=== PATIENT | male | born 1945 | race Caucasian/White ===

== ENCOUNTER → 2017-10-21 12:16 | Outpatient (CLI) | payer MEDICARE, SELFPAY ==
[2017-10-21 12:43] VITALS: PULSE 59; PULSE 67; PULSE 78; PULSE 86; PULSE 87; PULSE 90; PULSE 93; O2SAT 94; O2SAT 96
--- NOTE | 2017-10-22 08:46 | WT_ITS ---
PSN 6 Minute Walk Test - 6 Minute Walk Test 6 Minute Walk Test: 6 Minute Walk Test PSN:6-Minute Walk Test Start: 10/21/17 12: 42 Freq: Status: Active Protocol: RESP.6MINW Document 10/21/17 12:43 JLA (Rec: 10/21/17 12:47 JLA [id number]) 6 Minute Walk Test Date Performed 10/21/17 Time Performed 12:30 Height 5 ft 10 in Weight: 258 lb 12.682 oz Weight in Pounds 258.[address]: Yoshi Fuentes Assistive device used: None Pre-test Oxygen Delivery Method Room Air Pulse Ox (%) 94 Pulse Rate (60-100 beats/min) 59 L Dyspnea Evin Scale (0-10) 1 Exertion Evin Scale (6-20) 6 1st minute Oxygen Delivery Method Room Air Pulse Ox (%) 96 Pulse Rate (60-100 beats/min) 86 2nd minute Oxygen Delivery Method Room Air Pulse Ox (%) 94 Pulse Rate (60-100 beats/min) 78 3rd minute Oxygen Delivery Method Room Air Pulse Ox (%) 94 Pulse Rate (60-100 beats/min) 87 4th minute Oxygen Delivery Method Room Air Pulse Ox (%) 94 Pulse Rate (60-100 beats/min) 78 5th minute Oxygen Delivery Method Room Air Pulse Ox (%) 94 Pulse Rate (60-100 beats/min) 90 6th minute Oxygen Delivery Method Room Air Pulse Ox (%) 94 Pulse Rate (60-100 beats/min) 93 Dyspnea Evin Scale (0-10) 2 Exertion Evin Scale (6-20) 13 Post-test Oxygen Delivery Method Room Air Pulse Ox (%) 96 Pulse Rate (60-100 beats/min) 67 Full Laps Walked 19 Partial Lap, Number of Tiles Walked 17 Total Distance Walked (ft) 1138 - Interpretation Interpretation: The patient ambulated 1138 feet over the course of 6 minutes beginning on room air without assistive devices or breaks. Pretesting oxygen saturation was noted to be 94% on room air. With ambulation, the ritu oxygen saturation was 94%. There was no significant exertional oxygen desaturation. - Recommendations Recommendations: There is no indication for the use of supplemental oxygen at this time.
== END ==
PROVIDERS: Family Provider Family Medicine; PCP Family Medicine; Visit Provider Internal Medicine Critical Care Medicine
DX: J44.9 Chronic obstructive pulmonary disease, unspecified (principal); I27.20 Pulmonary hypertension, unspecified
CPT/HCPCS: 94618

== ENCOUNTER → 2017-10-24 13:20 | Outpatient (CLI) | payer MEDICARE, SELFPAY ==
--- NOTE | 2017-10-25 10:52 | PFT ---
INTRODUCTION: The patient is a 72-year-old male currently under the care of Dr. Fuentes that presents for pulmonary function testing secondary to a diagnosis of COPD. Respiratory therapy reports good patient effort and reports no other concerns. Bronchodilators were used during testing. INTERPRETATION: Forced expiration spirometry demonstrates the presence of a moderately severe large airways obstructive ventilatory defect. There was a significant response to aerosolized bronchodilators noted in both FEV1 and FVC. Spirograms are of good quality and do not plateau indicating slow emptying of the lungs. The respiratory flow volume loop reveals decreased expiratory flow rates at all lung volumes consistent with airways obstruction. Body plethysmography was performed and reveals an elevated RV to 120% of predicted, indicative of a mild degree of air trapping. Diffusing capacity by single breath CO is mildly reduced at 64% of predicted. IMPRESSION: These pulmonary function studies demonstrate the presence of a moderately severe large airways obstructive ventilatory impairment. There was a significant bronchodilator response noted along with a mild degree of air trapping and reduction in diffusing capacity.
== END ==
PROVIDERS: Family Provider Family Medicine; PCP Family Medicine; Visit Provider Internal Medicine Critical Care Medicine
DX: J44.9 Chronic obstructive pulmonary disease, unspecified (principal)
CPT/HCPCS: 94060; 94726; 94729

== ENCOUNTER → 2017-10-25 13:53 | Outpatient (CLI) | payer MEDICARE, SELFPAY ==
--- NOTE | 2017-10-25 13:54 | ECHOCS_ITS ---
Reason For Study: PULMONARY HTN Procedure This was a 2D Doppler, Color Flow transthoracic echocardiogram. Exam performed in department. Left Ventricle Normal LV size. Left ventricular systolic function is normal. The estimated ejection fraction is 55 %. No evidence for diastolic dysfunction. No regional wall motion abnormalities noted. Right Ventricle Normal RV size. Normal systolic function. Atria Normal left atrium. Normal right atrium. Mitral Valve Normal mitral valve. Mild (1+) eccentric mitral valve insufficiency. Tricuspid Valve Normal tricuspid valve. Aortic Valve Trisinus/trileaflet aortic valve. Moderate focal aortic valve calcification. Peak aortic valve gradient 27 mmHg. Mean aortic valve gradient 15 mmHg. Mild aortic stenosis. Calculated aortic valve area (continuity equation) is 1.6 cm2. Mild (1+) eccentric aortic valve insufficiency. Pulmonic Valve Normal pulmonic valve. Great Vessels Normal aortic root. The pulmonary artery is normal size. Normal inferior vena cava. Pericardium/Pleural No pericardial effusion. MMode/2D Measurements & Calculations LVIDd: 4.9 cm IVSd: 1.1 cm LVOT diam: 2.4 cm LVIDs: 3.5 cm LVPWd: 1.1 cm LVOT area: 4.5 cm2 RVDd: 3.9 cm FS: 29.1 % Ao root diam: 3.8 cm LAV(MOD-bp): 57.2 ml EDV(MOD-sp4): 110.6 ml LAV(MOD-bp) Indexed: 24.7 ml/m2 ESV(MOD-sp4): 50.6 ml LAV(MOD-sp2): 64.6 ml EF(MOD-sp4): 54.3 % LAV(MOD-sp4): 44.7 ml SV(MOD-sp4): 60.1 ml LA A4 area: 18.5 cm2 RA A4 area: 15.2 cm2 Time Measurements MV dec time: 0.21 sec Doppler Measurements & Calculations MV E max gibran: 107.1 cm/sec Lat Peak E' Gibran: 13.0 cm/sec Med Peak E' Gibran: 7.6 cm/sec MV A max gibran: 64.5 cm/sec E/E' lat: 8.2 E/E' med: 14.1 MV E/A: 1.7 Ao V2 max: 259.7 cm/sec AI max gibran: 327.3 cm/sec LV V1 max: 91.0 cm/sec Ao max P.1 mmHg AI max P.9 mmHg LV V1 max P.3 mmHg Ao V2 mean: 182.5 cm/sec AI dec slope: 119.3 cm/sec2 LV V1 mean P.8 mmHg Ao mean P.2 mmHg AI P1/2t: 803.4 msec LV V1 mean: 63.6 cm/sec Ao V2 VTI: 61.8 cm LV V1 VTI: 23.5 cm ISAC(I,D): 1.7 cm2 ISAC(V,D): 1.6 cm2 SV(LVOT): 106.4 ml PA V2 max: 85.8 cm/sec TR max gibran: 196.2 cm/sec TR max P.4 mmHg Interpretation Summary Normal LV size. Left ventricular systolic function is normal. The estimated ejection fraction is 55 %. No evidence for diastolic dysfunction. Mild aortic stenosis. Calculated aortic valve area (continuity equation) is 1.6 cm2. Ordering Physician: Yoshi Fuentes Referring Physician: MICHELL KENT Performed By: Latoya Fuller RDCS
== END ==
PROVIDERS: Family Provider Family Medicine; PCP Family Medicine; Visit Provider Internal Medicine Critical Care Medicine
DX: Z98.890 Other specified postprocedural states (principal); G47.33 Obstructive sleep apnea (adult) (pediatric); Z87.19 Personal history of other diseases of the digestive system
CPT/HCPCS: 93306; C8929

== ENCOUNTER → 2018-01-01 13:18 | Outpatient (CLI) | payer MEDICARE, SELFPAY ==
--- NOTE | 2018-01-01 13:21 | VDLE_ITS ---
Reason For Study: LEG PAIN RIGHT LEFT GSV is normal. CFV is compressible, spontaneous, phasic, CFV is compressible, spontaneous, phasic, competent, and demonstrates normal competent and demonstrates normal augmentation. augmentation. FV is compressible, spontaneous, phasic, competent and demonstrates normal augmentation. POP V is compressible, spontaneous, phasic, competent and demonstrates normal augmentation. T/P Trunk is compressible. PTV is compressible. RT PerV is compressible. Procedure Exam performed in department. A preliminary report was called and/or faxed to Dr. Parnell. Interpretation Summary Deep veins of the right lower extremity are patent and compressible segmentally. There is no evidence of right lower extremity deep vein thrombosis. Valvular competence appears intact within the proximal deep venous system on the right . The right greater saphenous vein appears patent and compressible segmentally. Ordering Physician: Orlando Parnell Referring Physician: Orlando Parnell Performed By: Olinda Bello RVT
== END ==
PROVIDERS: Family Provider Family Medicine; PCP Family Medicine; Visit Provider Family Medicine
DX: M79.661 Pain in right lower leg (principal)
CPT/HCPCS: 93971

== ENCOUNTER → 2018-07-14 08:17 | Outpatient (CLI) | payer MEDICARE, SELFPAY ==
[2018-07-14 10:27] LABS: Absolute Lymphocyte Count 1.67 X10^3/ul (0.83-4.51); Basophil# 0.05 X10^3/uL; Basophil% 0.7 % (0-1); Eosinophil# 0.35 X10^3/uL; Eosinophils% 5.2 % (0-5); Hematocrit 41.1 % (40-54); Hemoglobin 13.4 g/dl (13.0-16.5); Lymphocyte # 1.67 X10^3/ul (4.0); Lymphocyte % 24.6 % (19-41); Mean Corp Hgb Conc 32.6 g/gl (32-36); Mean Corpuscular Hgb 30.5 pg (27.0-32.0); Mean Corpuscular Volume 93.6 fL (80-94); Monocyte# 0.64 X10^3/uL; Monocyte% 9.4 % (0-10); Neutrophil # 4.04 X10^3/uL (2.7-7.7); Neutrophil % 59.7 % (47-70); Platelet Count 184 K/mm3 (150-450); RBC Distribution Width CV 13.6 % (11.6-14.6); RBC Distribution Width SD 46.7 fl (35.1-43.9); Red Blood Count 4.39 M/mm3 (4.6-6.2); White Blood Count 6.8 K/mm3 (4.4-11.0)
[2018-07-14 10:30] LABS: POSITIVE COUNT NO; POSITIVE DIFFERENTIAL NO; POSITIVE MORPHOLOGY NO
[2018-07-14 10:35] LABS: International Normalized Ratio 1.7; Prothrombin Time (Protime)PT. 19.9 SECONDS (11.7-14.9)
[2018-07-14 10:44] LABS: Anion Gap 9 (5-15); BUN 22 mg/dL (7-18); BUN/Creat Ratio 20.4 RATIO (10-20); Calcium,Total 8.7 mg/dL (8.5-10.1); Chloride 106 mmol/L (98-107); Creatinine, Serum 1.08 mg/dL (0.70-1.30); EST Glomerular Filtration Rate 72 mL/min (>60); Est Glom Filt Rate - Afr Amer 87 mL/min (>60); Glucose 100 mg/dL (74-106); Potassium 4.2 mmol/L (3.5-5.1); Sodium Level 142 mmol/L (136-145)
== END ==
PROVIDERS: Family Provider Family Medicine; PCP Family Medicine; Visit Provider Family Medicine
DX: M79.89 Other specified soft tissue disorders (principal)
CPT/HCPCS: 36415; 80048; 85025; 85610

== ENCOUNTER → 2018-07-23 08:49 | Outpatient (CLI) | payer MEDICARE, SELFPAY ==
[2018-07-17 12:50] VITALS: BMI 38.7
[2018-07-23 09:26] VITALS: PULSE 60; PULSE 67; PULSE 76; PULSE 89; PULSE 90; PULSE 91; PULSE 92; O2SAT 95; O2SAT 96; O2SAT 97
--- NOTE | 2018-07-23 15:26 | PCM.PSN.6M ---
PSN 6 Minute Walk Test - 6 Minute Walk Test 6 Minute Walk Test: 6 Minute Walk Test PSN:6-Minute Walk Test Start: 07/23/18 09:26 Freq: Status: Active Protocol: RESP.6MINW Document 07/23/18 09:26 LEOPOLDO (Rec: 07/23/18 09:36 LEOPOLDO [id number]) 6 Minute Walk Test Date Performed 07/23/18 Time Performed 09:00 Height 5 ft 10 in Weight: 118.841 kg Weight in Pounds 262.[address]: Yoshi Fuentes Assistive device used: None Pre-test Oxygen Delivery Method Room Air Pulse Ox (%) 97 Pulse Rate (60-100 beats/min) 67 Dyspnea Evin Scale (0-10) 0 Exertion Evin Scale (6-20) 6 1st minute Oxygen Delivery Method Room Air Pulse Ox (%) 96 Pulse Rate (60-100 beats/min) 76 2nd minute Oxygen Delivery Method Room Air Pulse Ox (%) 95 Pulse Rate (60-100 beats/min) 90 3rd minute Oxygen Delivery Method Room Air Pulse Ox (%) 95 Pulse Rate (60-100 beats/min) 91 4th minute Oxygen Delivery Method Room Air Pulse Ox (%) 95 Pulse Rate (60-100 beats/min) 92 5th minute Oxygen Delivery Method Room Air Pulse Ox (%) 96 Pulse Rate (60-100 beats/min) 91 6th minute Oxygen Delivery Method Room Air Pulse Ox (%) 96 Pulse Rate (60-100 beats/min) 89 Dyspnea Evin Scale (0-10) 2 Exertion Evin Scale (6-20) 12 Post-test Oxygen Delivery Method Room Air Pulse Ox (%) 97 Pulse Rate (60-100 beats/min) 60 Full Laps Walked 16 Partial Lap, Number of Tiles Walked 94 Total Distance Walked (ft) 1038 - Interpretation Interpretation: The patient was able to ambulate 1038 feet over the course of 6 minutes on room air with no assistive devices or breaks. The patient did not experience any significant desaturation or tachycardia during testing. These findings are consistent with deconditioning. - Recommendations Recommendations: No supplemental oxygen is indicated at this time.
== END ==
PROVIDERS: Family Provider Family Medicine; PCP Family Medicine; Referring Provider Internal Medicine Critical Care Medicine; Visit Provider Internal Medicine Critical Care Medicine
DX: I27.20 Pulmonary hypertension, unspecified (principal); G47.33 Obstructive sleep apnea (adult) (pediatric); J45.40 Moderate persistent asthma, uncomplicated
CPT/HCPCS: 94618

== ENCOUNTER → 2018-10-08 07:49 | Outpatient (CLI) | payer MEDICARE, SELFPAY ==
[2018-07-17 12:50] VITALS: BMI 38.7
--- NOTE | 2018-10-08 12:48 | PFT ---
INTRODUCTION: The patient is a 73-year-old male that presents for pulmonary function studies secondary to a diagnosis of COPD. Respiratory therapy reports good patient effort. Bronchodilators were used during testing. INTERPRETATION: Forced expiration spirometry demonstrates the presence of a very severe large airways obstructive ventilatory defect. There was a significant response to aerosolized bronchodilators noted. Spirograms are of good quality and do not plateau indicating slow emptying of the lungs. Body plethysmography was performed and reveals an elevated RV to 178% of predicted, indicative of underlying air trapping. Diffusing capacity by single breath CO is mildly reduced at 69% of predicted. When compared to previous pulmonary function studies dated October 2017, there has been a 42% reduction in FEV1. IMPRESSION: Partially reversible very severe large airways obstructive ventilatory defect with associated air trapping and mild reduction in diffusing capacity. There has been significant worsening in the patient's pulmonary function study since they were last completed in 2017, as noted above.
== END ==
PROVIDERS: Family Provider Family Medicine; PCP Family Medicine; Referring Provider Internal Medicine Critical Care Medicine; Visit Provider Internal Medicine Critical Care Medicine
DX: J45.40 Moderate persistent asthma, uncomplicated (principal)
CPT/HCPCS: 94060; 94726; 94729

== ENCOUNTER → 2018-11-21 12:37 | Outpatient (CLI) | payer MEDICARE, SELFPAY ==
[2018-10-23 10:22] VITALS: BMI 38.2
[2018-11-21 13:44] LABS: Absolute Lymphocyte Count 1.32 X10^3/ul (0.83-4.51); Absolute Neutrophil Count 4.3 X10^3/uL (2.0-7.7); Basophil# 0.05 X10^3/uL; Basophil% 0.7 % (0-1); Eosinophil# 0.43 X10^3/uL; Eosinophils% 6.3 % (0-5); Hematocrit 41.7 % (40-54); Lymphocyte # 1.32 X10^3/ul (4.0); Lymphocyte % 19.5 % (19-41); Mean Corp Hgb Conc 33.6 g/gl (32-36); Mean Corpuscular Hgb 30.9 pg (27.0-32.0); Mean Corpuscular Volume 92.1 fL (80-94); Mean Platelet Vol. 10.2 fl (6.2-12.0); Monocyte# 0.64 X10^3/uL; Monocyte% 9.4 % (0-10); Neutrophil # 4.31 X10^3/uL (2.7-7.7); Neutrophil % 63.7 % (47-70); Platelet Count 201 K/mm3 (150-450); RBC Distribution Width CV 13.6 % (11.6-14.6); RBC Distribution Width SD 45.2 fl (35.1-43.9); Red Blood Count 4.53 M/mm3 (4.6-6.2); White Blood Count 6.8 K/mm3 (4.4-11.0)
[2018-11-21 13:54] LABS: POSITIVE COUNT NO; POSITIVE DIFFERENTIAL NO; POSITIVE MORPHOLOGY NO
[2018-12-02 03:06] LABS: Alternaria alternata <0.10 kU/L (Class 0); Aspirgillus flavus Negative (Neg:<1:1); Aspirgillus fumigatus Negative (Neg:<1:1); Aspirgillus niger Negative (Neg:<1:1); Bermuda Grass <0.10 kU/L (Class 0); Bluegrass, Kentucky <0.10 kU/L (Class 0); Cat Hair/Dander, Standard <0.10 kU/L (Class 0); D farinae Mite <0.10 kU/L (Class 0); D pteronyssinus <0.10 kU/L (Class 0); Dog Epithelia <0.10 kU/L (Class 0); Elm, American White <0.10 kU/L (Class 0); Oak, White <0.10 kU/L (Class 0); Plantain, English <0.10 kU/L (Class 0); Ragweed, Short/Common <0.10 kU/L (Class 0)
[2018-12-02 16:41] LABS: Immunoglobulin E 85 IU/mL (6-495); Mouse Urine <0.10 kU/L (Class 0)
== END ==
PROVIDERS: Family Provider Family Medicine; PCP Family Medicine; Referring Provider Nurse Practitioner Acute Care; Visit Provider Nurse Practitioner Acute Care
DX: J45.40 Moderate persistent asthma, uncomplicated (principal)
CPT/HCPCS: 36415; 82785; 85025; 86003; 86606

== ENCOUNTER → 2018-12-30 16:46 | Outpatient (CLI) | payer MEDICARE, SELFPAY ==
[2018-12-30 16:02] VITALS: BMI 37.7
[2018-12-30 17:29] LABS: International Normalized Ratio 2.4; Prothrombin Time (Protime)PT. 25.8 SECONDS (11.7-14.9)
[2018-12-30 17:49] LABS: Anion Gap 9 (5-15); BUN 22 mg/dL (7-18); BUN/Creat Ratio 15.3 RATIO (10-20); Calcium,Total 9.1 mg/dL (8.5-10.1); Chloride 106 mmol/L (98-107); Creatinine, Serum 1.44 mg/dL (0.70-1.30); EST Glomerular Filtration Rate 51 mL/min (>60); Est Glom Filt Rate - Afr Amer 62 mL/min (>60); Glucose 100 mg/dL (74-106); Potassium 4.7 mmol/L (3.5-5.1); Sodium Level 143 mmol/L (136-145)
== END ==
PROVIDERS: Family Provider Family Medicine; PCP Family Medicine; Referring Provider Internal Medicine Cardiovascular Disease; Visit Provider Internal Medicine Cardiovascular Disease
DX: I48.0 Paroxysmal atrial fibrillation (principal)
CPT/HCPCS: 36415; 80048; 85610

== ENCOUNTER 2019-01-07 12:30 | Outpatient (RCR) | payer MEDICARE, SELFPAY ==
[2018-12-30 16:02] VITALS: BMI 37.7
[2019-01-07 13:46] LABS: International Normalized Ratio 2.9; Prothrombin Time (Protime)PT. 30.1 SECONDS (11.7-14.9)
== END 2019-01-11 12:00 | disposition home or self-care (01) ==
LOC: LAB 12:30
PROVIDERS: Family Provider Family Medicine; PCP Family Medicine; Referring Provider Internal Medicine Cardiovascular Disease; Visit Provider Internal Medicine Cardiovascular Disease
DX: I48.0 Paroxysmal atrial fibrillation (principal); Z79.01 Long term (current) use of anticoagulants
CPT/HCPCS: 36415; 85610

== ENCOUNTER 2019-01-14 13:00 | Outpatient (RCR) | payer MEDICARE, SELFPAY ==
[2018-12-30 16:02] VITALS: BMI 37.7
[2019-01-14 14:55] LABS: Prothrombin Time (Protime)PT. 35.5 SECONDS (11.7-14.9)
[2019-01-14 15:28] LABS: International Normalized Ratio 3.5
== END 2019-02-11 16:00 | disposition home or self-care (01) ==
LOC: LAB 13:00
PROVIDERS: Family Provider Family Medicine; PCP Family Medicine; Referring Provider Internal Medicine Cardiovascular Disease; Visit Provider Internal Medicine Cardiovascular Disease
DX: I48.0 Paroxysmal atrial fibrillation (principal); Z79.01 Long term (current) use of anticoagulants
CPT/HCPCS: 36415; 85610

== ENCOUNTER → 2019-01-19 06:12 | Outpatient (CLI) | payer MEDICARE, SELFPAY ==
[2018-12-30 16:02] VITALS: BMI 37.7
--- NOTE | 2019-01-19 06:35 | RAD_ITS ---
STUDY: X-RAY CHEST REASON FOR EXAM: Male, 73 years old. Shortness of breath/dyspnea. TECHNIQUE: PA and lateral views of the chest. COMPARISON: Comparison is made with prior study dated March 03, 2016. FINDINGS: There is hyperinflation of the lungs consistent with chronic obstructive lung disease (COPD). There is no demonstrated pleural abnormality. Normal size heart. Calcified bilateral hilar lymph nodes. Normal visualized pulmonary arteries. There is atherosclerotic calcification of the aortic arch with tortuosity. Normal visualized thoracic spine. Normal visualized ribs, clavicles, and shoulders. There is no demonstrated abnormality of the visualized soft tissue structures of the upper abdomen. RAD/Chest PA and Lateral IMPRESSION: Hyperinflation. No acute abnormality is seen. Electronically Signed: Vicente Madsen, at 9:32 EDT , Service support ,
--- NOTE | 2019-01-19 09:12 | STRESSREP ---
Stress Test Report Pharmacologic myocardial perfusion stress test. 73-year-old man with a history of chest pain. Medications: Flecainide, metoprolol, warfarin, Lipitor, Symbicort. 0.4 mg of regadenoson was infused per usual protocol followed by rapid intravenous infection injection continuous EKG monitoring was performed. The maximum heart rate was 97 bpm which was 65% of maximum predicted heart rate and maximum workload was 1 metabolic equivalent. At rest there were no ST or T wave changes noted suggest abnormal flow reserve. The patient maintained atrial fibrillation throughout the recording.Resting EKG demonstrates atrial fibrillation with a rate of 75 bpm normal intervals are noted resting blood pressure is 118/78 mmHg. The resting blood pressures 118/78 with a final blood pressure 120/78. No clinical angina was noted. Myocardial perfusion protocol. 14.5 mCi of technetium 99m sestamibi was injected at rest. 0.4 mg of regadenoson was infused per usual protocol peak infusion 44.2 mCi of technetium 99m sestamibi was injected stress images were obtained stress and rest images are reconstructed in comparing the short axis vertical and horizontal long axis. Gated images were also obtained Perfusion SPECT analysis: Review of the stress images demonstrate normal uptake of tracer noted in all areas of the myocardium. The resting images demonstrate normal uptake of tracer noted in all areas of the myocardium. No areas of reversibility are noted suggest ischemia no previous infarct is noted. Gated SPECT analysis: The gated ejection fraction is noted to be 61%. Conclusion: Normal pharmacologic myocardial perfusion stress test. Atrial fibrillation noted. Preserved ejection fraction.
== END ==
PROVIDERS: Family Provider Family Medicine; PCP Family Medicine; Referring Provider Internal Medicine Cardiovascular Disease; Visit Provider Internal Medicine Cardiovascular Disease
DX: R07.9 Chest pain, unspecified (principal); I27.21 Secondary pulmonary arterial hypertension; I10 Essential (primary) hypertension; J44.9 Chronic obstructive pulmonary disease, unspecified; I48.0 Paroxysmal atrial fibrillation; I35.2 Nonrheumatic aortic (valve) stenosis with insufficiency; G47.33 Obstructive sleep apnea (adult) (pediatric); E78.5 Hyperlipidemia, unspecified; Z79.01 Long term (current) use of anticoagulants
CPT/HCPCS: 71046; 78452; 93017; A9500; A4216; J2785

== ENCOUNTER 2019-01-23 10:57 | Day surgery (SDC) | payer MEDICARE, SELFPAY ==
[2018-12-30 16:02] VITALS: BMI 37.7
[2019-01-21 18:42] LABS: Hemoglobin 13.8 g/dl (13.0-16.5); Mean Corp Hgb Conc 32.9 g/gl (32-36); Mean Corpuscular Hgb 30.5 pg (27.0-32.0); Mean Corpuscular Volume 92.9 fL (80-94); Mean Platelet Vol. 9.9 fl (6.2-12.0); Platelet Count 195 K/mm3 (150-450); RBC Distribution Width CV 13.6 % (11.6-14.6); RBC Distribution Width SD 45.8 fl (35.1-43.9); Red Blood Count 4.52 M/mm3 (4.6-6.2); Scan Indicated on CBC? Y/N NO
[2019-01-21 18:43] LABS: Anion Gap 6 (5-15); BUN 21 mg/dL (7-18); BUN/Creat Ratio 17.9 RATIO (10-20); Calcium,Total 8.8 mg/dL (8.5-10.1); Chloride 106 mmol/L (98-107); Creatinine, Serum 1.17 mg/dL (0.70-1.30); EST Glomerular Filtration Rate 65 mL/min (>60); Est Glom Filt Rate - Afr Amer 79 mL/min (>60); Glucose 113 mg/dL (74-106); International Normalized Ratio 2.8; Partial Thromboplast Time 44.5 Seconds (24.1-36.2); Potassium 4.3 mmol/L (3.5-5.1); Sodium Level 138 mmol/L (136-145)
[2019-01-22 08:23] VITALS: BMI 37.7
[2019-01-23 11:11] LABS: Prothrombin Time Fingerstick 25.8 SEC (11.9-14.4)
== END 2019-01-23 11:20 | disposition home or self-care (01) ==
PROVIDERS: Family Provider Family Medicine; PCP Family Medicine; Referring Provider Internal Medicine Cardiovascular Disease; Visit Provider Internal Medicine Cardiovascular Disease
DX: Z53.09 Procedure and treatment not carried out because of other contraindication (principal); R94.31 Abnormal electrocardiogram [ECG] [EKG]; I48.91 Unspecified atrial fibrillation; I48.92 Unspecified atrial flutter; Z79.01 Long term (current) use of anticoagulants; I48.0 Paroxysmal atrial fibrillation; I35.2 Nonrheumatic aortic (valve) stenosis with insufficiency
CPT/HCPCS: 36415; 36416; 80048; 85027; 85610; 85730; 93005

== ENCOUNTER 2019-04-22 08:41 | Outpatient (RCR) | payer MEDICARE, SELFPAY ==
[2019-03-24 13:12] VITALS: BMI 37.7
--- NOTE | 2019-04-22 09:38 | HP.PTEVAL_ITS ---
Patient's Visit Information ELIZABETH ALLISON is a 73 year old M referred to Physical Therapy by Abdoul Avery MD with a diagnosis of vertigo. Date of Evaluation: 04/22/19 Physical Therapist: William Sales, ASHLEYT, OCS, CSCS - Visit Plan Frequency: 1x/Week Duration: 4-6 Weeks Plan: weekly progression of adaptationa dn habituation ex as needed. - Subjective Findings: Getting CALI for quite a long time. Just walking along and feels like his mind is gone and splitting CALI, lasts 3 seconds with rastafari pressure adn it is gone. Sitting up in morning can cause this pressure also for a few seconds. Standing pumping gas can cause it. In between episodes feels normal. Gets these about 4x/day. Regular CALI last couple days. No spinning, no neuropathy, balance is not good. Stumbles btu no cane or walker needed. Sleep is OK and lying in bed is no problem. Has seen retail manager in training, pulmonary and family doctor who looked into meds but did not help to cut them in half. Has not had scans but retail manager in training is regular work ups. Not employed. Spends day doing odds and ends. This slows him down but does not stop him. No falls. No regular ex. Blanace has just felt off for two weeks. - Pain tempe CALI Pain Intensity (Out of 10): 5 Pain Intensity Range: 0, 7 - Objective Walks well and normal and safe in firm flat surface. Trasnfers I. Steps reciprocal with no rail safely today. UE AROM and cervical aROM WFL adn without pain or hesitation. Sensation UE WNL to gross light touch. - B hallpike magda, - roll test. Oculomotor: no nystagmus with gaze or head shake. normal convergence. - skew eye deviation. normal pursuit. Saccades slight CALI posterior quickly. VOR horiz 30 sec gives 5/10 dizzy/cloudiness for 2 minutes. VOR vertical gives 3/10 dizzyness for 30 seconds. - Balance Scores Functional Gait Assessment Score: 28 % Disability: 6.6700 CATSIB Score (Max score 120 seconds): 113 - Goals Goal 1:: Pt feel 100% back to normal with CALI and dizzyness. Goal Time Frame: 4-6 Weeks Goal 2:: <10% on DHI Goal Time Frame: 4-6 Weeks Goal 3:: 0 bouts of CALI/dizzyness for 4 days Goal Time Frame: 4-6 Weeks - Rehabilitation Potential Physical Therapy Diagnosis: possible vestibular hypofunction Rehabilitation Potential: Fair - Anticipated Interventions Patient/Client Instruction: Educate patient on: Condition, Plan of Care For the Purpose of:: To increase tolerance to activity/condition/position Comment: adaptationa nd habituation For the Purpose of:: To increase tolerance to activity/condition/position Thank you for the opportunity to evaluate your patient. For Medicare and Medicare HMO plans, please review the plan of care and approve it. It will need to be FAXED BACK to us at [phone] for Medicare purposes. For Medicare only, by signing this I certify the plan of care. Please let me know if there are questions or concerns regarding this plan of care. Physician Signature: Date:
--- NOTE | 2019-06-18 16:44 | HP.PT.NRP ---
HP - Discharge Summary (1) - Patient Information ELIZABETH ALLISON was seen in my office for initial evaluation on 04/22/19. The following Plan of Care was established for this patient: Initial Frequency: 1x/Week Initial Duration: 4-6 Weeks - Anticipated Interventions Patient/Client Instruction: Educate patient on: Condition, Plan of Care For the Purpose of:: To increase tolerance to activity/condition/position For the Purpose of:: To increase tolerance to activity/condition/position This patient was last seen in our office 04/22/19. Pertinent comments regarding their Physical therapy will appear below: Pt seen one visit of POC. he did not attend any further visits. at this point, it has been over 6 weeks and I will discontinue due to nonattendance. At this point I will be discontinuing this patient from physical therapy. I would be happy to see this patient again in the future if found appropriate by the physician. Thank you! William Sales, DPT, OCS, CSCS
== END 2019-04-22 19:00 | disposition home or self-care (01) ==
LOC: PT 08:41
PROVIDERS: Family Provider Family Medicine; PCP Family Medicine; Referring Provider Family Medicine; Visit Provider Family Medicine
DX: R42 Dizziness and giddiness (principal)
CPT/HCPCS: 97162

== ENCOUNTER → 2019-04-28 12:05 | Outpatient (CLI) | payer MEDICARE, SELFPAY ==
[2019-03-24 13:12] VITALS: BMI 37.7
--- NOTE | 2019-04-28 12:32 | CT_ITS ---
We are attempting to reach an attending provider to discuss findings. An addendum with communication details will be sent when the communication is complete. STUDY: CT BRAIN WITHOUT CONTRAST REASON FOR EXAM: Male, 73 years old. NEW ONSET HEADACHE. RADIATION DOSAGE (If Supplied By Facility): CTDIvol = ( 44.99 ) mGy, DLP = ( 846.73 ) mGycm TECHNIQUE: Transaxial CT imaging of the brain was performed without administration of intravenous contrast material. Individualized dose optimization techniques were used for this CT. COMPARISON: No relevant priors. FINDINGS: Normal size ventricles and extra-axial spaces for the patient's age. Normal white matter tracts of the cerebral hemispheres. Normal basal ganglia and thalami. Normal brainstem. Normal cerebellum. There is right frontoparietal extra-axial collection measuring up to 6 mm in thickness. There is no underlying mass effect. There is no midline shift. There are no findings of an acute ischemic infarction. There is mucoperiosteal inflammatory disease of the paranasal sinuses consistent with mild chronic sinusitis. CT/Brain/Head without Contrast IMPRESSION: 6 mm thick right subdural hematoma. Electronically Signed: Annabelle Wiseman MD at 13:02 EDT Tel , Service support ,
[2019-04-28 12:38] LABS: Absolute Lymphocyte Count 0.99 X10^3/uL (0.83-4.51); Absolute Neutrophil Count 4.6 X10^3/uL (2.0-7.7); Basophil# 0.06 X10^3/uL; Basophil% 0.9 % (0-1); Eosinophil# 0.29 X10^3/uL; Eosinophils% 4.4 % (0-5); Hematocrit 37.3 % (40-54); Hemoglobin 12.1 g/dL (13.0-16.5); Lymphocyte # 0.99 X10^3/ul (4.0); Mean Corp Hgb Conc 32.4 g/dL (32-36); Mean Corpuscular Hgb 30.4 pg (27.0-32.0); Mean Corpuscular Volume 93.7 fL (80-94); Mean Platelet Vol. 9.8 fl (6.2-12.0); Monocyte# 0.59 X10^3/uL; Monocyte% 8.9 % (0-10); NRBC Flagged by Analyzer 0 % (0-5); Neutrophil # 4.64 X10^3/uL (2.7-7.7); Neutrophil % 70.3 % (47-70); Platelet Count 185 K/mm3 (150-450); RBC Distribution Width CV 13.2 % (11.6-14.6); RBC Distribution Width SD 44.8 fl (35.1-43.9); Red Blood Count 3.98 M/mm3 (4.6-6.2); White Blood Count 6.6 K/mm3 (4.4-11.0)
[2019-04-28 13:38] LABS: Anion Gap 4 (5-15); BUN 23 mg/dL (7-18); BUN/Creat Ratio 20.2 RATIO (10-20); Calcium,Total 8.7 mg/dL (8.5-10.1); Chloride 107 mmol/L (98-107); Creatinine, Serum 1.14 mg/dL (0.70-1.30); EST Glomerular Filtration Rate 67 mL/min (>60); Est Glom Filt Rate - Afr Amer 81 mL/min (>60); Glucose 88 mg/dL (74-106); Potassium 4.4 mmol/L (3.5-5.1); Sodium Level 138 mmol/L (136-145); Thyroid Stim Hormone (TSH) 2.07 uIU/mL (0.358-3.74)
== END ==
PROVIDERS: Family Provider Family Medicine; PCP Family Medicine; Referring Provider Family Medicine; Visit Provider Family Medicine
DX: R51 Headache (principal); R42 Dizziness and giddiness; I48.91 Unspecified atrial fibrillation
CPT/HCPCS: 36415; 70450; 80048; 84443; 85025

== ENCOUNTER 2019-04-28 14:13 | Emergency (ER) | payer MEDICARE, SELFPAY ==
[2019-03-24 13:12] VITALS: BMI 37.7
[2019-04-28] VITALS (9 sets, daily range): BP systolic 126–157; BP diastolic 62–83; PULSE 58–67; RESP 15–18; TEMP 36.4; O2SAT 95–98; BMI 37.7
--- NOTE | 2019-04-28 14:16 | EKG12_ITS ---
Test Reason : NEURO S/SX Blood Pressure : / mmHG Vent. Rate : 064 BPM Atrial Rate : 064 BPM P-R Int : 222 ms QRS Dur : 104 ms QT Int : 446 ms P-R-T Axes : 068 061 055 degrees QTc Int : 460 ms Sinus rhythm with 1st degree A-V block Otherwise normal ECG Confirmed by COOPER KATZ ([id number]), communications editor ESTHER RODRIGUEZ ([id number]) on 05/01/2019 10:17:11 AM Referred By: AMARJIT Confirmed By:COOPER KATZ
--- NOTE | 2019-04-28 14:16 | RAD_ITS ---
STUDY: X-RAY CHEST REASON FOR EXAM: Male, 73 years old. COPD. Atrial fibrillation. TECHNIQUE: PA and lateral views of the chest. COMPARISON: January 19, 2019. FINDINGS: Telemetry wires overlie the chest. Minimally decreased inspiratory effort, when compared to the prior study, with mild linear atelectasis at both lung bases. There is no new infiltrate or mass. There is no demonstrated pleural abnormality. Normal size heart. Normal mediastinum and candace. Normal visualized pulmonary arteries. There is atherosclerotic calcification of the aortic arch with tortuosity. No visualized osseous changes. There is no demonstrated abnormality of the visualized soft tissue structures of the upper abdomen. RAD/Chest PA and Lateral IMPRESSION: No acute cardiopulmonary disease or major interval change. There is a diminished inspiratory effort with minimal bibasilar atelectasis. Electronically Signed: Casa Bennett DO at 16:25 EDT Tel [phone], Service support ,
[2019-04-28 14:52] LABS: Absolute Lymphocyte Count 0.95 X10^3/uL (0.83-4.51); Absolute Neutrophil Count 4.9 X10^3/uL (2.0-7.7); Basophil# 0.05 X10^3/uL; Basophil% 0.7 % (0-1); Eosinophil# 0.32 X10^3/uL; Eosinophils% 4.7 % (0-5); Hemoglobin 12.2 g/dL (13.0-16.5); Lymphocyte # 0.95 X10^3/ul (4.0); Lymphocyte % 14.1 % (19-41); Mean Corp Hgb Conc 32.1 g/dL (32-36); Mean Corpuscular Hgb 30.4 pg (27.0-32.0); Mean Corpuscular Volume 94.8 fL (80-94); Mean Platelet Vol. 9.5 fl (6.2-12.0); Monocyte# 0.49 X10^3/uL; Monocyte% 7.3 % (0-10); NRBC Flagged by Analyzer 0 % (0-5); Neutrophil # 4.89 X10^3/uL (2.7-7.7); Neutrophil % 72.5 % (47-70); Platelet Count 186 K/mm3 (150-450); RBC Distribution Width CV 13.1 % (11.6-14.6); RBC Distribution Width SD 44.6 fl (35.1-43.9); Red Blood Count 4.01 M/mm3 (4.6-6.2); White Blood Count 6.8 K/mm3 (4.4-11.0)
[2019-04-28 15:05] LABS: Anion Gap 5 (5-15); BUN 24 mg/dL (7-18); BUN/Creat Ratio 19.8 RATIO (10-20); Calcium,Total 8.7 mg/dL (8.5-10.1); Chloride 107 mmol/L (98-107); Creatinine, Serum 1.21 mg/dL (0.70-1.30); EST Glomerular Filtration Rate 63 mL/min (>60); Est Glom Filt Rate - Afr Amer 76 mL/min (>60); Estimated Creatinine Clearance 57.82 ml/min; Glucose 104 mg/dL (74-106); Sodium Level 139 mmol/L (136-145)
[2019-04-28 15:07] LABS: Partial Thromboplast Time 42.6 Seconds (24.1-36.2); Prothrombin Time (Protime)PT. 31.4 SECONDS (11.7-14.9)
[2019-04-28] MEDS: 0.9% Normal Saline 1,000 ML 50 ML IV (15:13)
--- NOTE | 2019-04-28 16:13 | ED.VISSUMM ---
- ER Visit Summary Date of Service: 04/28/19 Chief Complaint: Subdurral hemorrhage History of Present Illness: The patient is a 73 M with ongoing headaches for months. His headache was worse today. He had an outpatient CT that showed a right frontal parietal subdural hemorrhage measuring 6 mm without mass-effect or shift. He was advised to come to the ED immediately. He takes Coumadin for atrial fibrillation. He has been compliant. He denies any trauma. He denies any neurologic symptoms. Physical Examination: Afebrile and vital signs unremarkable. Blood pressure 126/74. Head and neck atraumatic. HEENT exam unremarkable. Cranial nerves normal. Heart and lungs unremarkable. Good strength and sensation. Normal cerebellar testing. Test Results: INR 3. Hemoglobin 12.2. Otherwise labs unremarkable. Emergency Department Course and Treatment: Family requested [facility]. I called them upon presentation to the ED. He is out of network for insurance. I discussed this with the family and they requested [facility]. I spoke with Dr. Huerta at [facility] who advised this would likely be treated nonoperatively. He suggested [place] or [facility]. I spoke with Dr. Yeung and Dr. Pedraza at [facility], and they accepted the patient. They did request vitamin K 10 mg. No Kcentra. On reevaluation, blood pressure is stable. No new or worsening neurologic symptoms. No new or worsening pain. Treatment Plan: As above Disposition: Transfer Impression: 1. Subdural hemorrhage This note was generated with e27 dictation software. It may contain incorrect words, spelling, and punctuation that were not noted in review of the chart prior to signing ED Disposition - Plan for ED Patient: Referrals: Orlando Parnell MD [Primary Care Provider] -
--- NOTE | 2019-04-28 17:17 | NURSING ---
[facility] [place] [facility] 2119 (ICU) NURSE TO NURSE [phone] OR [phone]
== END 2019-04-28 18:19 | disposition short-term general hospital (02) ==
LOC: ED 14:59
PROVIDERS: Emergency Provider Emergency Medicine; Family Provider Family Medicine; PCP Family Medicine
DX: I62.00 Nontraumatic subdural hemorrhage, unspecified (principal); I48.91 Unspecified atrial fibrillation; I10 Essential (primary) hypertension; J44.9 Chronic obstructive pulmonary disease, unspecified; Z79.01 Long term (current) use of anticoagulants; Z79.899 Other long term (current) drug therapy; Z87.891 Personal history of nicotine dependence
CPT/HCPCS: 36415; 70450; 71046; 80048; 84443; 85025; 85610; 85730; 93005; 96365; 99285; C9132; J7030; J3490

== ENCOUNTER → 2019-05-11 | Outpatient (CLI) | payer MEDICARE, SELFPAY ==
[2019-05-04 15:04] VITALS: BMI 38.0
--- NOTE | 2019-05-11 13:50 | CDU_ITS ---
Reason For Study: vertigo, carotid stenosis Rt. Velocities/BP Lt. Velocities/BP Prox CCA 60.4/16.0 cm/sec. Prox CCA 82.6/24.9 cm/sec. Mid CCA 53.9/18.6 cm/sec. Mid CCA 70.4/21.2 cm/sec. Dist CCA 57.8/14.7 cm/sec. Dist CCA 71.6/20.0 cm/sec. Prox ICA 61.7/21.3 cm/sec. Prox ICA 50.7/13.9 cm/sec. Mid ICA 154.0/62.6 cm/sec. Mid ICA 77.7/23.7 cm/sec. Dist ICA 84.3/33.9 cm/sec. Dist ICA 72.5/22.1 cm/sec. Rt. ICA/CCA = 2.9. Lt. ICA/CCA = 1.1. Prox ECA 51.2/6.9 cm/sec. Prox ECA 80.2/13.9 cm/sec. Rt. Vert. 42.6/13.3 cm/sec. Lt. Vert. 56.9/18.8 cm/sec. Right Extracranial There is intimal thickening but no significant atherosclerotic plaque noted in the right common carotid artery. There is heterogeneous, irregular atherosclerotic plaque noted in the right internal carotid artery. The right internal carotid artery is very tortuous. There is intimal thickening but no significant atherosclerotic plaque noted in the right external carotid artery. Antegrade flow is noted in the right vertebral artery. Left Extracranial There is intimal thickening but no significant atherosclerotic plaque noted in the left common carotid artery. There is heterogeneous, irregular atherosclerotic plaque noted in the left internal carotid artery. There is intimal thickening but no significant atherosclerotic plaque noted in the left external carotid artery. Antegrade flow is noted in the left vertebral artery. Procedure Carotid Duplex [id number]. The exam was diagnostic. Exam performed in department. Interpretation Summary Mild (<50%) stenosis right extracranial internal carotid. Mild (<50%) stenosis left extracranial internal carotid. Elevated velocities in the right mid-internal carotid artery are suspected to be due to vessel tortuosity rather than stenosis. Flow within the vertebral arteries is antegrade bilaterally. Ordering Physician: Abdoul Fairchild Performed By: George Dong RVT
== END | disposition home or self-care (01) ==
LOC: CVS 13:49
PROVIDERS: Family Provider Family Medicine; PCP Family Medicine; Referring Provider Nurse Practitioner Family; Visit Provider Nurse Practitioner Family
DX: E78.00 Pure hypercholesterolemia, unspecified (principal); I10 Essential (primary) hypertension; I35.2 Nonrheumatic aortic (valve) stenosis with insufficiency; I48.0 Paroxysmal atrial fibrillation; I65.22 Occlusion and stenosis of left carotid artery
CPT/HCPCS: 93880

== ENCOUNTER → 2019-05-14 12:43 | Outpatient (CLI) | payer MEDICARE, SELFPAY ==
[2019-05-04 15:04] VITALS: BMI 38.0
--- NOTE | 2019-05-14 12:53 | CT_ITS ---
HISTORY: FOLLOW UP SUBDURAL HEMATOMA Technique:CT Head or Brain W/O Contrast Injection Number of Images including paperwork:260 Comparison: April 28, 2019 Findings: CT images of the head were obtained without contrast. Periventricular deep and subcortical white matter disease is present. Mucoperiosteal thickening within the ethmoid air cells and the maxillary sinuses remains mild. Calcific plaque within the cavernous ICAs persists. The brain is atrophic. Calcific ASCVD involves intracranial arteries. Along the right convexity there remains a tiny amount of tissue that could represent a tiny subdural hematoma. On the current study this tissue is slightly greater than CSF, but less dense than brain. Measures 3 mm in thickness. It is perhaps minimally thinner and less than the previous study No acute abnormality of orbits. Middle ear cavities and mastoid air cells are well aerated. Skull is normal. CT/Brain/Head without Contrast IMPRESSION: No acute intracranial abnormality. Persistent 3 mm rim of slightly dense tissue along the inner table of the skull adjacent to the right cerebral hemisphere. This is perhaps slightly less thickness to a nonacute right subdural hematoma. Chronic changes as above. ASPECT 10. Individualized dose optimization techniques were used for this CT. at 0548 Reported and signed by: Glenn Lincoln MD Electronically Signed: Glenn Lincoln MD at 5:47 EDT Tel , Service support ,
== END ==
PROVIDERS: Family Provider Family Medicine; PCP Family Medicine
DX: I62.00 Nontraumatic subdural hemorrhage, unspecified (principal)
CPT/HCPCS: 70450

== ENCOUNTER → 2019-07-22 14:57 | Outpatient (CLI) | payer MEDICARE, SELFPAY ==
[2019-07-02 14:52] VITALS: BMI 37.8
--- NOTE | 2019-07-22 15:00 | ECHOD_ITS ---
Reason For Study: DYSPNEA/SOB Procedure This was a 2D Doppler, Color Flow transthoracic echocardiogram. Left Ventricle Normal LV size. Moderate concentric left ventricular hypertrophy. Left ventricular systolic function is normal. The estimated ejection fraction is 60 %. Stage 2 diastolic dysfunction. No regional wall motion abnormalities noted. Right Ventricle Normal RV size. Normal systolic function. Atria The left atrium is mildly enlarged. Normal right atrium. Mitral Valve Normal mitral valve. Mild (1+) mitral valve insufficiency. Tricuspid Valve Normal tricuspid valve. Aortic Valve Trisinus/trileaflet aortic valve. Mild focal aortic valve calcification. Peak aortic valve gradient 34 mmHg. Mean aortic valve gradient 20 mmHg. Mild aortic stenosis. Calculated aortic valve area (continuity equation) is 1.4 cm2. Mild (1+) eccentric aortic valve insufficiency. Pulmonic Valve Normal pulmonic valve. Great Vessels Normal aortic root. The pulmonary artery is normal size. Normal inferior vena cava. Pericardium/Pleural No pericardial effusion. MMode/2D Measurements & Calculations LVIDd: 5.3 cm IVSd: 1.4 cm LVOT diam: 2.3 cm LVIDs: 4.0 cm LVPWd: 1.2 cm LVOT area: 4.0 cm2 RVDd: 3.3 cm FS: 25.4 % Ao root diam: 3.5 cm LAV(MOD-bp): 74.7 ml LA A4 area: 21.6 cm2 LAV(MOD-bp) Indexed: 31.8 ml/m2 LAV(MOD-sp2): 80.1 ml LAV(MOD-sp4): 72.3 ml LA dimension(2D): 4.4 cm RA A4 area: 13.9 cm2 Time Measurements MV dec time: 0.18 sec Doppler Measurements & Calculations MV E max gibran: 106.0 cm/sec Lat Peak E' Gibran: 9.4 cm/sec Med Peak E' Gibran: 7.8 cm/sec MV A max gibran: 68.9 cm/sec E/E' lat: 11.3 E/E' med: 13.5 MV E/A: 1.5 Ao V2 max: 291.6 cm/sec AI max gibran: 300.3 cm/sec LV V1 max: 98.5 cm/sec Ao max P.0 mmHg AI max P.1 mmHg LV V1 max P.9 mmHg Ao V2 mean: 207.9 cm/sec AI dec slope: 161.1 cm/sec2 LV V1 mean P.1 mmHg Ao mean P.0 mmHg AI P1/2t: 545.9 msec LV V1 mean: 70.1 cm/sec Ao V2 VTI: 69.3 cm LV V1 VTI: 24.0 cm ISAC(I,D): 1.4 cm2 ISAC(V,D): 1.4 cm2 SV(LVOT): 96.8 ml PA V2 max: 80.8 cm/sec Interpretation Summary Normal LV size. Moderate concentric left ventricular hypertrophy. Left ventricular systolic function is normal. The estimated ejection fraction is 60 %. Stage 2 diastolic dysfunction. Mild aortic stenosis. Calculated aortic valve area (continuity equation) is 1.4 cm2. Mild (1+) eccentric aortic valve insufficiency. Ordering Physician: Abdoul Fairchild Referring Physician: Orlando Parnell Performed By: Heather Macias RDCS, RVT
== END ==
PROVIDERS: Family Provider Family Medicine; PCP Family Medicine; Referring Provider Nurse Practitioner Family; Visit Provider Nurse Practitioner Family
DX: R06.09 Other forms of dyspnea (principal); I27.21 Secondary pulmonary arterial hypertension; I48.0 Paroxysmal atrial fibrillation; I10 Essential (primary) hypertension; E78.5 Hyperlipidemia, unspecified
CPT/HCPCS: 93306

== ENCOUNTER → 2019-08-17 12:00 | Outpatient (CLI) | payer MEDICARE, SELFPAY ==
[2019-07-23 10:21] VITALS: BMI 37.5
[2019-08-17 13:34] LABS: Erythrocyte Sedimentation Rate 17 mm/hr (0-20)
[2019-08-17 13:45] LABS: CRP < 2.90 mg/L (0.0-3.0)
== END ==
PROVIDERS: PCP Family Medicine; Referring Provider Internal Medicine Gastroenterology; Visit Provider Internal Medicine Gastroenterology
DX: K50.10 Crohn's disease of large intestine without complications (principal)
CPT/HCPCS: 36415; 85652; 86140

== ENCOUNTER → 2019-09-14 17:49 | Outpatient (CLI) | payer MEDICARE, SELFPAY ==
[2019-07-23 10:21] VITALS: BMI 37.5
[2019-09-14 11:20] VITALS: BMI 38.0
--- NOTE | 2019-09-14 17:49 | CT_ITS ---
STUDY: CT BRAIN WITHOUT CONTRAST REASON FOR EXAM: Male, 74 years old. PRIOR BLEED RADIATION DOSAGE (If Supplied By Facility): CTDIvol = ( 44.99 ) mGy, DLP = ( 796.11 ) mGycm TECHNIQUE: Transaxial CT imaging of the brain was performed without administration of intravenous contrast material. Individualized dose optimization techniques were used for this CT. COMPARISON: May 14, 2019 FINDINGS: There is cerebral atrophy with widening of the extra-axial spaces and ventricular dilatation. There are areas of decreased attenuation within the white matter tracts of the supratentorial brain, consistent with microvascular disease changes. The previously noted small right subdural hematoma is no longer seen. There is no intracranial hemorrhage. There are no findings of an acute ischemic infarction. CT/Brain/Head without Contrast IMPRESSION: No acute intracranial abnormality. Chronic involutional changes. Electronically Signed: Annabelle Wiseman MD at 14:52 EST Tel , Service support ,
== END ==
PROVIDERS: PCP Family Medicine; Referring Provider Nurse Practitioner Family; Visit Provider Nurse Practitioner Family
DX: I60.9 Nontraumatic subarachnoid hemorrhage, unspecified (principal); I48.0 Paroxysmal atrial fibrillation
CPT/HCPCS: 70450

== ENCOUNTER 2019-10-05 12:02 | Outpatient (RCR) | payer MEDICARE, SELFPAY ==
[2019-09-14 11:20] VITALS: BMI 38.0
[2019-09-18 11:23] LABS: International Normalized Ratio 1.9; Prothrombin Time (Protime)PT. 21.8 SECONDS (11.7-14.9)
[2019-09-21 11:21] LABS: International Normalized Ratio 2.7; Prothrombin Time (Protime)PT. 28.7 SECONDS (11.7-14.9)
[2019-09-28 13:56] LABS: International Normalized Ratio 1.9; Prothrombin Time (Protime)PT. 21.6 SECONDS (11.7-14.9)
[2019-10-05 12:39] LABS: International Normalized Ratio 3.3; Prothrombin Time (Protime)PT. 33.9 SECONDS (11.7-14.9)
== END 2019-10-05 18:00 | disposition home or self-care (01) ==
LOC: LAB 12:02
PROVIDERS: PCP Family Medicine; Referring Provider Nurse Practitioner Family; Visit Provider Nurse Practitioner Family
DX: I48.0 Paroxysmal atrial fibrillation (principal); Z79.01 Long term (current) use of anticoagulants
CPT/HCPCS: 36415; 85610

== ENCOUNTER 2019-10-15 11:09 | Outpatient (RCR) | payer MEDICARE, SELFPAY ==
[2019-09-14 11:20] VITALS: BMI 38.0
[2019-10-15 11:51] LABS: International Normalized Ratio 1.8; Prothrombin Time (Protime)PT. 20.4 SECONDS (11.7-14.9)
== END 2019-11-12 18:00 | disposition home or self-care (01) ==
LOC: LAB 11:09
PROVIDERS: PCP Family Medicine; Referring Provider Nurse Practitioner Family; Visit Provider Nurse Practitioner Family
DX: I48.0 Paroxysmal atrial fibrillation (principal); Z79.01 Long term (current) use of anticoagulants
CPT/HCPCS: 36415; 85610

== ENCOUNTER 2019-12-08 11:01 | Outpatient (RCR) | payer MEDICARE, SELFPAY ==
[2019-09-14 11:20] VITALS: BMI 38.0
[2019-11-27 11:51] LABS: International Normalized Ratio 1.5; Prothrombin Time (Protime)PT. 17.7 SECONDS (11.7-14.9)
[2019-12-02 11:37] LABS: Prothrombin Time (Protime)PT. 22.4 SECONDS (11.7-14.9)
[2019-12-08 11:34] LABS: International Normalized Ratio 2.3; Prothrombin Time (Protime)PT. 25.2 SECONDS (11.7-14.9)
== END 2019-12-08 18:00 | disposition home or self-care (01) ==
LOC: LAB 11:01
PROVIDERS: PCP Family Medicine; Referring Provider Nurse Practitioner Family; Visit Provider Nurse Practitioner Family
DX: I48.0 Paroxysmal atrial fibrillation (principal); Z79.01 Long term (current) use of anticoagulants
CPT/HCPCS: 36415; 85610

== ENCOUNTER 2020-01-12 10:00 | Outpatient (RCR) | payer MEDICARE, SELFPAY ==
[2019-09-14 11:20] VITALS: BMI 38.0
[2019-12-14 11:53] LABS: International Normalized Ratio 2.7; Prothrombin Time (Protime)PT. 28.4 SECONDS (11.7-14.9)
[2019-12-18 12:26] LABS: International Normalized Ratio 3.2; Prothrombin Time (Protime)PT. 32.5 SECONDS (11.7-14.9)
[2019-12-31 11:05] LABS: International Normalized Ratio 2.1; Prothrombin Time (Protime)PT. 23.4 SECONDS (11.7-14.9)
[2020-01-05 11:46] LABS: International Normalized Ratio 2.1
[2020-01-12 10:59] LABS: International Normalized Ratio 2.4; Prothrombin Time (Protime)PT. 25.6 SECONDS (11.7-14.9)
== END 2020-01-12 18:00 | disposition home or self-care (01) ==
LOC: LAB 10:00
PROVIDERS: PCP Family Medicine; Referring Provider Nurse Practitioner Family; Visit Provider Nurse Practitioner Family
DX: I48.0 Paroxysmal atrial fibrillation (principal); Z79.01 Long term (current) use of anticoagulants
CPT/HCPCS: 36415; 85610

== ENCOUNTER → 2020-04-11 09:54 | Outpatient (CLI) | payer MEDICARE, SELFPAY ==
[2020-03-22 09:44] VITALS: BMI 35.9
--- NOTE | 2020-04-11 09:55 | ECHOD_ITS ---
Reason For Study: ATRIAL FIB-FLUTTER Procedure This was a 2D Doppler, Color Flow transthoracic echocardiogram. Exam performed in department. Left Ventricle Normal LV size. Mild concentric left ventricular hypertrophy. Left ventricular systolic function is normal. The estimated ejection fraction is 60 %. No regional wall motion abnormalities noted. Right Ventricle Normal RV size. Normal systolic function. Atria Normal left atrium. Normal right atrium. Mitral Valve There is mild mitral annular calcification. Trivial eccentric mitral valve insufficiency. Tricuspid Valve Normal tricuspid valve. Mild (1+) tricuspid valve insufficiency. Pulmonary artery systolic pressure is 30 mmHg. Aortic Valve Trisinus/trileaflet aortic valve. Moderate focal aortic valve calcification. Peak aortic valve gradient 43 mmHg. Mean aortic valve gradient 26 mmHg. Calculated aortic valve area (continuity equation) is 0.92 cm2. Mild (1+) aortic valve insufficiency. Pulmonic Valve Normal pulmonic valve. Great Vessels Normal aortic root. The pulmonary artery is normal size. Normal inferior vena cava. Pericardium/Pleural No pericardial effusion. MMode/2D Measurements & Calculations LVIDd: 4.3 cm IVSd: 1.3 cm LVOT diam: 2.0 cm LVIDs: 3.0 cm LVPWd: 1.3 cm LVOT area: 3.0 cm2 RVDd: 3.6 cm FS: 30.0 % Ao root diam: 3.2 cm LAV(MOD-bp): 45.6 ml LVAd ap4: 32.0 cm2 LAV(MOD-bp) Indexed: 20.0 ml/m2 EDV(MOD-sp4): 103.2 ml LAV(MOD-sp2): 53.3 ml EDV(sp4-el): 102.6 ml LAV(MOD-sp4): 40.3 ml LVAs ap4: 18.9 cm2 ESV(MOD-sp4): 40.4 ml ESV(sp4-el): 40.8 ml EF(MOD-sp4): 60.9 % EF(sp4-el): 60.2 % SV(MOD-sp4): 62.8 ml SV(sp4-el): 61.8 ml LA A4 area: 15.4 cm2 LA dimension(2D): 3.9 cm RA A4 area: 15.2 cm2 Time Measurements MV dec time: 0.22 sec Doppler Measurements & Calculations MV E max gibran: 73.8 cm/sec Lat Peak E' Gibran: 8.7 cm/sec Med Peak E' Gibran: 5.2 cm/sec MV A max gibran: 80.5 cm/sec E/E' lat: 8.5 E/E' med: 14.3 MV E/A: 0.92 Ao V2 max: 327.6 cm/sec AI max gibran: 300.2 cm/sec LV V1 max: 98.6 cm/sec Ao max P.0 mmHg AI max P.1 mmHg LV V1 max P.9 mmHg Ao V2 mean: 244.0 cm/sec LV V1 mean P.1 mmHg Ao mean P.1 mmHg AI dec slope: 171.0 cm/sec2 LV V1 mean: 67.8 cm/sec Ao V2 VTI: 81.6 cm AI P1/2t: 514.3 msec LV V1 VTI: 25.3 cm ISAC(I,D): 0.94 cm2 ISAC(V,D): 0.92 cm2 SV(LVOT): 77.1 ml PA V2 max: 84.5 cm/sec TR max gibran: 260.9 cm/sec TR max P.2 mmHg Interpretation Summary Normal LV size. Mild concentric left ventricular hypertrophy. Left ventricular systolic function is normal. The estimated ejection fraction is 60 %. Mean aortic valve gradient 26 mmHg. Calculated aortic valve area (continuity equation) is 0.92 cm2. Mild (1+) aortic valve insufficiency. Mild (1+) tricuspid valve insufficiency. Ordering Physician: Marvin Lui Referring Physician: MICHELL EKNT Performed By: Latoya Fuller RDCS
== END ==
PROVIDERS: PCP Family Medicine; Referring Provider Internal Medicine Cardiovascular Disease; Visit Provider Internal Medicine Cardiovascular Disease
DX: I48.19 Other persistent atrial fibrillation (principal); I48.92 Unspecified atrial flutter
CPT/HCPCS: 93225; 93226; 93306

== ENCOUNTER → 2020-07-06 08:46 | Outpatient (CLI) | payer MEDICARE, SELFPAY ==
[2020-04-15 09:36] VITALS: BMI 35.9
[2020-07-06 11:19] LABS: Anion Gap 6 (5-15); BUN 18 mg/dL (7-18); BUN/Creat Ratio 15.4 RATIO (10-20); Calcium,Total 8.9 mg/dL (8.5-10.1); Chloride 107 mmol/L (98-107); Cholesterol 167 mg/dL (200); Creatinine, Serum 1.17 mg/dL (0.70-1.30); EST Glomerular Filtration Rate 65 mL/min (>60); Est Glom Filt Rate - Afr Amer 79 mL/min (>60); Glucose 100 mg/dL (74-106); High Density Lipoprotein 38 mg/dL; Potassium 3.8 mmol/L (3.5-5.1); Sodium Level 140 mmol/L (136-145); Triglycerides 88 mg/dL; Very Low Density Lipoprotein 18 mg/dL (5-40)
== END ==
PROVIDERS: PCP Family Medicine; Referring Provider Family Medicine; Visit Provider Family Medicine
DX: I48.91 Unspecified atrial fibrillation (principal)
CPT/HCPCS: 36415; 80048; 80061

== ENCOUNTER → 2020-08-16 13:37 | Outpatient (CLI) | payer MEDICARE, SELFPAY ==
[2020-08-16 12:54] VITALS: BMI 38.1
--- NOTE | 2020-08-16 13:39 | RAD_ITS ---
STUDY: X-RAY CHEST REASON FOR EXAM: Male, 75 years old. JOE X SEVERAL MONTHS TECHNIQUE: PA and lateral views of the chest. COMPARISON: Comparison is made with prior study 04/28/2019. FINDINGS: Stable minimal increased linear markings at the left lung base just above the linear scarring. There is no demonstrated pleural abnormality. Normal size heart. Normal mediastinum and candace. Normal visualized pulmonary arteries. There is atherosclerotic calcification of the aortic arch with tortuosity. Normal visualized thoracic spine. Normal visualized ribs, clavicles, and shoulders. There is no demonstrated abnormality of the visualized soft tissue structures of the upper abdomen. RAD/Chest PA and Lateral IMPRESSION: Mild degree of linear scarring at the left lung base. Electronically Signed: Vicente Madsen MD at 14:24 EST , Service support ,
[2020-08-16 14:53] LABS: Absolute Lymphocyte Count 1.55 X10^3/uL (0.83-4.51); Absolute Neutrophil Count 4.4 X10^3/uL (2.0-7.7); Basophil# 0.07 X10^3/uL; Eosinophil# 0.23 X10^3/uL; Eosinophils% 3.3 % (0-5); Hematocrit 38.8 % (40-54); Hemoglobin 12.9 g/dL (13.0-16.5); Lymphocyte # 1.55 X10^3/ul (4.0); Lymphocyte % 22.3 % (19-41); Mean Corp Hgb Conc 33.2 g/dL (32-36); Mean Corpuscular Hgb 30.2 pg (27.0-32.0); Mean Corpuscular Volume 90.9 fL (80-94); Mean Platelet Vol. 9.8 fl (6.2-12.0); Monocyte# 0.64 X10^3/uL; Monocyte% 9.2 % (0-10); NRBC Flagged by Analyzer 0 % (0-5); Neutrophil # 4.38 X10^3/uL (2.7-7.7); Neutrophil % 63.2 % (47-70); Platelet Count 258 K/mm3 (150-450); RBC Distribution Width CV 12.8 % (11.6-14.6); RBC Distribution Width SD 42.1 fl (35.1-43.9); Red Blood Count 4.27 M/mm3 (4.6-6.2); White Blood Count 6.9 K/mm3 (4.4-11.0)
[2020-08-16 15:52] LABS: BNP,B-Type NATRIURETIC PEPTIDE 77.3 pg/mL (0-100)
== END ==
PROVIDERS: PCP Family Medicine; Referring Provider Physician Assistant Medical; Visit Provider Physician Assistant Medical
DX: R06.09 Other forms of dyspnea (principal); E78.00 Pure hypercholesterolemia, unspecified
CPT/HCPCS: 36415; 71046; 83880; 85025

== ENCOUNTER → 2020-08-26 12:41 | Outpatient (CLI) | payer MEDICARE, SELFPAY ==
[2020-08-16 12:54] VITALS: BMI 38.1
--- NOTE | 2020-08-26 13:15 | ECHOD_ITS ---
Reason For Study: Bicuspid AoV Procedure This was a 2D Doppler, Color Flow transthoracic echocardiogram. Exam performed in department. Left Ventricle Normal LV size. Mild concentric left ventricular hypertrophy. Left ventricular systolic function is normal. The estimated ejection fraction is 55 %. Stage 2 diastolic dysfunction. Right Ventricle Normal RV size. Normal systolic function. Atria Normal left atrium. Normal right atrium. Mitral Valve Normal mitral valve. Mild (1+) eccentric mitral valve insufficiency. Tricuspid Valve Normal tricuspid valve. Mild (1+) tricuspid valve insufficiency. Pulmonary artery systolic pressure is 28 mmHg. Aortic Valve Trisinus/trileaflet aortic valve. Moderate focal aortic valve calcification. Peak aortic valve gradient 32 mmHg. Mean aortic valve gradient 20 mmHg. Mild (1+) aortic valve insufficiency. Pulmonic Valve Normal pulmonic valve. Great Vessels Normal aortic root. The pulmonary artery is normal size. Normal inferior vena cava. Pericardium/Pleural No pericardial effusion. MMode/2D Measurements & Calculations LVIDd: 4.6 cm IVSd: 1.7 cm LVOT diam: 2.1 cm LVIDs: 3.5 cm LVPWd: 1.4 cm LVOT area: 3.5 cm2 RVDd: 3.8 cm FS: 23.0 % Ao root diam: 3.1 cm LAV(MOD-bp): 46.7 ml LVAd ap4: 26.8 cm2 LAV(MOD-bp) Indexed: 20.3 ml/m2 EDV(MOD-sp4): 76.4 ml LAV(MOD-sp2): 59.8 ml EDV(sp4-el): 78.3 ml LAV(MOD-sp4): 36.0 ml LVAs ap4: 15.6 cm2 ESV(MOD-sp4): 32.9 ml ESV(sp4-el): 30.9 ml EF(MOD-sp4): 56.9 % EF(sp4-el): 60.5 % SV(MOD-sp4): 43.5 ml SV(sp4-el): 47.4 ml LA A4 area: 15.2 cm2 LA dimension(2D): 4.0 cm RA A4 area: 15.1 cm2 Doppler Measurements & Calculations MV E max gibran: 90.1 cm/sec Lat Peak E' Gibran: 7.0 cm/sec Med Peak E' Gibran: 4.0 cm/sec MV A max gibran: 69.8 cm/sec E/E' lat: 12.9 E/E' med: 22.5 MV E/A: 1.3 Ao V2 max: 283.1 cm/sec AI max gibran: 278.0 cm/sec LV V1 max: 85.3 cm/sec Ao max P.1 mmHg AI max P.9 mmHg LV V1 max P.9 mmHg Ao V2 mean: 213.6 cm/sec LV V1 mean P.7 mmHg Ao mean P.7 mmHg AI dec slope: 148.8 cm/sec2 LV V1 mean: 62.2 cm/sec Ao V2 VTI: 65.2 cm AI P1/2t: 547.1 msec LV V1 VTI: 20.2 cm ISAC(I,D): 1.1 cm2 ISAC(V,D): 1.1 cm2 SV(LVOT): 71.7 ml PA V2 max: 69.6 cm/sec TR max gibran: 244.1 cm/sec TR max P.8 mmHg Interpretation Summary Normal LV size. Mild concentric left ventricular hypertrophy. Left ventricular systolic function is normal. The estimated ejection fraction is 55 %. Stage 2 diastolic dysfunction. Moderate focal aortic valve calcification. Mean aortic valve gradient 20 mmHg. Mild (1+) aortic valve insufficiency. Compared to prior study, there is no significant change. Ordering Physician: Sera Daniel Referring Physician: Orlando Parnell Performed By: Cecilia Fairchild RDCS, RVT
== END ==
PROVIDERS: PCP Family Medicine; Referring Provider Physician Assistant Medical; Visit Provider Physician Assistant Medical
DX: I48.19 Other persistent atrial fibrillation (principal); I35.1 Nonrheumatic aortic (valve) insufficiency; R06.00 Dyspnea, unspecified
CPT/HCPCS: 93306

== ENCOUNTER → 2020-09-13 10:36 | Outpatient (CLI) | payer MEDICARE, SELFPAY ==
[2020-03-22 09:44] VITALS: BMI 35.9
[2020-08-16 12:54] VITALS: BMI 38.1
--- NOTE | 2020-09-13 13:48 | PFTCOMP ---
COMPLETE PULMONARY FUNCTION TEST INTERPRETATION Brief HPI: Patient is a 75 year old male, currently under the care of myself, who presents to [facility] for complete pulmonary function tests secondary to diagnosis of COPD. Respiratory therapist reports good effort and reproducible results. Interpretation: Forced expiration spirometry shows a mild large airways obstructive ventilatory defect with an FEV1 of 74% predicted. There is a significant bronchodilator response in FVC and FEV1 by strict ATS criteria. Spirograms are of good quality and plateau slowly, indicating slowly emptying areas of the lungs. The respiratory flow volume loop shows decreased expiratory flow rates at all lung volumes consistent with airway obstruction. Lung volumes by body plethysmography show a normal total lung capacity at 6.18 L, 103% predicted. FRC and RV are elevated out of proportion. Lung volume measurements are consistent with air-trapping. Diffusion capacity by carbon monoxide is normal at 83% predicted. The airway resistance is elevated. Compared to previous pulmonary function tests from 10/08/2018, there is been a significant improvement in FVC and FEV1 by 24% and 45% respectively. Impression: Partially reversible mild large airways obstructive ventilatory defect, resulting in air trapping, but significantly improved compared to previous testing.
== END ==
PROVIDERS: PCP Family Medicine; Referring Provider Internal Medicine Critical Care Medicine; Visit Provider Internal Medicine Critical Care Medicine
DX: J44.9 Chronic obstructive pulmonary disease, unspecified (principal)
CPT/HCPCS: 94060; 94726; 94729

== ENCOUNTER → 2020-09-15 11:15 | Outpatient (CLI) | payer MEDICARE, SELFPAY ==
[2020-03-22 09:44] VITALS: BMI 35.9
[2020-08-16 12:54] VITALS: BMI 38.1
[2020-09-15 11:15] VITALS: PULSE 100; PULSE 104; PULSE 105; PULSE 118; PULSE 84; PULSE 88; O2SAT 95; O2SAT 96; O2SAT 97
--- NOTE | 2020-09-15 16:32 | PCM.PSN.6M ---
PSN 6 Minute Walk Test - 6 Minute Walk Test 6 Minute Walk Test: 6 Minute Walk Test PSN:6-Minute Walk Test Start: 09/15/20 11:30 Freq: Status: Active Protocol: RESP.6MINW Document 09/15/20 11:15 [facility] (Rec: 09/15/20 11:34 HJ [id number]) 6 Minute Walk Test Date Performed 09/15/20 Time Performed 11:15 Height 5 ft 8 in Weight: 119.748 kg Weight in Pounds 264.[address]: Yoshi Fuentes FIO2 (% Oxygen) 21 Assistive device used: None Pre-test Oxygen Delivery Method Room Air Pulse Ox (%) 95 Pulse Rate (60-100 beats/min) 88 Dyspnea Evin Scale (0-10) 0 Exertion Evin Scale (6-20) 6 1st minute Oxygen Delivery Method Room Air Pulse Ox (%) 96 Pulse Rate (60-100 beats/min) 100 2nd minute Oxygen Delivery Method Room Air Pulse Ox (%) 95 Pulse Rate (60-100 beats/min) 118 H 3rd minute Oxygen Delivery Method Room Air Pulse Ox (%) 95 Pulse Rate (60-100 beats/min) 105 H 4th minute Oxygen Delivery Method Room Air Pulse Ox (%) 96 Pulse Rate (60-100 beats/min) 104 H 5th minute Oxygen Delivery Method Room Air Pulse Ox (%) 96 Pulse Rate (60-100 beats/min) 100 6th minute Oxygen Delivery Method Room Air Pulse Ox (%) 96 Pulse Rate (60-100 beats/min) 104 H Post-test Oxygen Delivery Method Room Air Pulse Ox (%) 97 Pulse Rate (60-100 beats/min) 84 Dyspnea Evin Scale (0-10) 2 Exertion Evin Scale (6-20) 11 Full Laps Walked 19 Partial Lap, Number of Tiles Walked 28 Total Distance Walked (ft) 1149 - Interpretation Interpretation: The patient was able to ambulate 1149 feet over the course of 6 minutes on room air with no assistive devices or breaks. The patient experienced no significant desaturation, but did have significant tachycardia as high as 118 bpm. These findings are consistent with a cardiovascular limitation exercise tolerance. - Recommendations Recommendations: No supplemental oxygen is indicated at this time.
== END ==
PROVIDERS: PCP Family Medicine; Referring Provider Internal Medicine Critical Care Medicine; Visit Provider Internal Medicine Critical Care Medicine
DX: J44.9 Chronic obstructive pulmonary disease, unspecified (principal)
CPT/HCPCS: 94618

== ENCOUNTER → 2020-11-14 15:38 | Outpatient (CLI) | payer MEDICARE, SELFPAY ==
[2020-11-14 14:52] VITALS: BMI 39.9
[2020-11-14 17:16] LABS: Thyroid Stim Hormone (TSH) 1.41 uIU/mL (0.358-3.74)
[2020-11-18 08:39] LABS: Vitamin D 1,25-Dihydroxy 55.8 pg/mL (19.9-79.3)
== END ==
PROVIDERS: PCP Family Medicine; Referring Provider Physician Assistant Medical; Visit Provider Physician Assistant Medical
DX: E78.00 Pure hypercholesterolemia, unspecified (principal); E55.9 Vitamin D deficiency, unspecified; R53.83 Other fatigue
CPT/HCPCS: 36415; 82652; 84443

== ENCOUNTER → 2021-03-21 07:51 | Outpatient (CLI) | payer MEDICARE, SELFPAY ==
[2021-03-21 08:57] LABS: Absolute Lymphocyte Count 1.56 X10^3/uL (0.83-4.51); Absolute Neutrophil Count 4.7 X10^3/uL (2.0-7.7); Basophil# 0.08 X10^3/uL; Basophil% 1.1 % (0-1); Eosinophil# 0.27 X10^3/uL; Eosinophils% 3.6 % (0-5); Hematocrit 43.3 % (40-54); Hemoglobin 14.3 g/dL (13.0-16.5); Lymphocyte # 1.56 X10^3/ul (0.83-4.51); Lymphocyte % 21.1 % (19-41); Mean Corpuscular Hgb 30.3 pg (27.0-32.0); Mean Corpuscular Volume 91.7 fL (80-94); Mean Platelet Vol. 10.1 fl (6.2-12.0); Monocyte# 0.74 X10^3/uL; NRBC Flagged by Analyzer 0 % (0-5); Neutrophil # 4.72 X10^3/uL (2.7-7.7); Neutrophil % 63.8 % (47-70); Platelet Count 232 K/mm3 (150-450); RBC Distribution Width SD 43.6 fl (35.1-43.9); Red Blood Count 4.72 M/mm3 (4.6-6.2); White Blood Count 7.4 K/mm3 (4.4-11.0)
[2021-03-24 03:07] LABS: Alternaria alternata <0.10 kU/L (Class 0); Bermuda Grass <0.10 kU/L (Class 0); Bluegrass, Kentucky <0.10 kU/L (Class 0); Cat Hair/Dander, Standard <0.10 kU/L (Class 0); D farinae Mite <0.10 kU/L (Class 0); D pteronyssinus <0.10 kU/L (Class 0); Dog Epithelia <0.10 kU/L (Class 0); Elm, American White <0.10 kU/L (Class 0); Oak, White <0.10 kU/L (Class 0); Plantain, English <0.10 kU/L (Class 0); Ragweed, Short/Common <0.10 kU/L (Class 0)
[2021-03-24 07:45] LABS: Mouse Urine <0.10 kU/L (Class 0)
[2021-03-25 03:07] LABS: Aspirgillus flavus Negative (Neg:<1:1); Aspirgillus fumigatus Negative (Neg:<1:1); Aspirgillus niger Negative (Neg:<1:1)
[2021-03-25 14:25] LABS: Immunoglobulin E 41 IU/mL (6-495)
== END ==
PROVIDERS: PCP Family Medicine; Referring Provider Internal Medicine Critical Care Medicine; Visit Provider Internal Medicine Critical Care Medicine
DX: J44.9 Chronic obstructive pulmonary disease, unspecified (principal); J30.9 Allergic rhinitis, unspecified
CPT/HCPCS: 36415; 82785; 85025; 86003; 86606

== ENCOUNTER → 2021-04-13 08:55 | Outpatient (CLI) | payer MEDICARE, SELFPAY | PROVIDERS: PCP Family Medicine; Referring Provider Nurse Practitioner Acute Care; Visit Provider Nurse Practitioner Acute Care | DX: R05 Cough (principal); J02.9 Acute pharyngitis, unspecified | CPT/HCPCS: 87635; C9803; U0005; U0003 ==

== ENCOUNTER 2021-09-06 12:55 | Outpatient (CLI) | payer MEDICARE, SELFPAY ==
--- NOTE | 2021-09-06 13:24 | VDLE_ITS ---
Reason For Study: Edema RIGHT LEFT GSV is normal. CFV is compressible, spontaneous, phasic, CFV is compressible, spontaneous, phasic, competent, and demonstrates normal competent and demonstrates normal augmentation. augmentation. FV is compressible, spontaneous, phasic, competent and demonstrates normal augmentation. POP V is compressible, spontaneous, phasic, competent and demonstrates normal augmentation. T/P Trunk is compressible. PTV is compressible. RT PerV is compressible. Procedure This is a venous duplex using B-mode, color flow and spectral Doppler. Exam performed in department. A preliminary report was called and/or faxed to [facility]. VL/Venous Duplex US, Unilateral Interpretation Summary Deep veins of the right lower extremity are patent and compressible segmentally . There is no evidence of right lower extremity deep vein thrombosis. Valvular competence cecy ears intact within the proximal deep venous system on the right . The right great saphenous vein a ppears patent and compressible segmentally. Ordering Physician: Valeria Christianson Referring Physician: Orlando Parnell Performed By: Renetta Salazar RVT
== END 2021-09-06 23:59 | disposition home or self-care (01) ==
PROVIDERS: PCP Family Medicine; Referring Provider Registered Nurse; Visit Provider Registered Nurse
DX: R60.0 Localized edema (principal)
CPT/HCPCS: 93971

== ENCOUNTER → 2022-05-09 | Outpatient (CLI) | payer MEDICARE, SELFPAY ==
[2022-05-09 11:30] LABS: Absolute Lymphocyte Count 1.45 X10^3/uL (0.83-4.51); Absolute Neutrophil Count 4.6 X10^3/uL (2.0-7.7); Basophil# 0.08 X10^3/uL; Eosinophils% 10.5 % (0-5); Hematocrit 41.6 % (40-54); Hemoglobin 13.8 g/dL (13.0-16.5); Lymphocyte # 1.45 X10^3/ul (0.83-4.51); Mean Corp Hgb Conc 33.2 g/dL (32-36); Mean Corpuscular Hgb 30.5 pg (27.0-32.0); Mean Platelet Vol. 9.5 fl (6.2-12.0); Monocyte# 0.64 X10^3/uL; Monocyte% 8.4 % (0-10); NRBC Flagged by Analyzer 0 % (0-5); Neutrophil # 4.58 X10^3/uL (2.7-7.7); Neutrophil % 60.2 % (47-70); Platelet Count 224 K/mm3 (150-450); RBC Distribution Width CV 13.2 % (11.6-14.6); RBC Distribution Width SD 44.5 fl (35.1-43.9); Red Blood Count 4.52 M/mm3 (4.6-6.2); White Blood Count 7.6 K/mm3 (4.4-11.0)
[2022-05-09 11:53] LABS: Anion Gap 3 (5-15); BNP,B-Type NATRIURETIC PEPTIDE 51.2 pg/mL (0-100); BUN 24 mg/dL (7-18); BUN/Creat Ratio 21.8 RATIO (10-20); Calcium,Total 9.4 mg/dL (8.5-10.1); Chloride 105 mmol/L (98-107); EST Glomerular Filtration Rate 69 mL/min (>60); Est Glom Filt Rate - Afr Amer 84 mL/min (>60); Glucose 97 mg/dL (74-106); Potassium 4.3 mmol/L (3.5-5.1); Sodium Level 137 mmol/L (136-145)
== END | disposition home or self-care (01) ==
LOC: PAVLAB 11:10
PROVIDERS: PCP Family Medicine; Referring Provider Nurse Practitioner Acute Care; Visit Provider Nurse Practitioner Acute Care
DX: R06.09 Other forms of dyspnea (principal); J44.9 Chronic obstructive pulmonary disease, unspecified
CPT/HCPCS: 36415; 80048; 83880; 85025

== ENCOUNTER → 2022-05-10 | Outpatient (CLI) | payer MEDICARE, SELFPAY ==
--- NOTE | 2022-05-10 10:10 | RAD_ITS ---
EXAM: XR CHEST, 2 VIEWS CLINICAL INDICATION: shortness of breath TECHNIQUE: Frontal and lateral views of the chest. This report was created using [email or web address] report generation technology. COMPARISON: XR Chest dated august 16 2020 FINDINGS: LUNGS AND PLEURAL SPACES: Linear scarring within the lingula again noted. No consolidation or edema. No pneumothorax. No effusion. HEART: Normal heart size. MEDIASTINUM: No mediastinal or hilar mass. BONES/JOINTS: No acute abnormality. SOFT TISSUES: Normal. RAD/Chest PA and Lateral IMPRESSION: No acute cardiopulmonary disease. No interval change. Electronically Signed: Pantera Lui MD at 11:08 EDT ,
--- NOTE | 2022-05-10 16:17 | PFTCOMP ---
COMPLETE PULMONARY FUNCTION TEST INTERPRETATION Brief HPI: Patient is a 77-year-old male, currently under the care of Sharon Sanchez, who presents to [facility] for complete pulmonary function tests secondary to diagnosis of COPD. Respiratory therapist reports good effort and reproducible results. Interpretation: Forced expiration spirometry shows a moderately severe large airways obstructive ventilatory defect with an FEV1 of 57% predicted. There is a significant bronchodilator response in FVC and FEV1 by strict ATS criteria. Spirograms are of good quality and plateau slowly, indicating slowly emptying areas of the lungs. The respiratory flow volume loop shows decreased expiratory flow rates at all lung volumes consistent with airway obstruction. Lung volumes by body plethysmography show a normal total lung capacity at 6.84 L, 110% predicted. FRC and RV are elevated out of proportion. Lung volume measurements are consistent with hyperinflation and air-trapping. Diffusion capacity by carbon monoxide is normal at 76% predicted. The airway resistance is elevated. Compared to previous pulmonary function tests from 09/13/2020, there is been a significant reduction in FEV1 by 18%. Impression: Partially reversible moderately severe large airways obstructive ventilatory defect resulting in air trapping, and a pattern consistent with COPD/asthma overlap syndrome.
[2022-05-13 19:07] LABS: Aspirgillus flavus Negative (Neg:<1:1); Aspirgillus fumigatus Negative (Neg:<1:1)
[2022-05-15 18:31] LABS: Aspirgillus niger Negative (Neg:<1:1)
== END | disposition home or self-care (01) ==
PROVIDERS: PCP Family Medicine; Referring Provider Nurse Practitioner Acute Care; Visit Provider Nurse Practitioner Acute Care
DX: J44.9 Chronic obstructive pulmonary disease, unspecified (principal)
CPT/HCPCS: 36415; 71046; 86606; 94060; 94726; 94729

== ENCOUNTER → 2022-05-15 | Outpatient (CLI) | payer MEDICARE, SELFPAY ==
[2022-05-15 11:15] VITALS: PULSE 102; PULSE 103; PULSE 105; PULSE 65; PULSE 70; PULSE 95; O2SAT 96; O2SAT 97; O2SAT 98
--- NOTE | 2022-05-18 10:07 | PCM.PSN.6M ---
PSN 6 Minute Walk Test 6 Minute Walk Test 6 Minute Walk Test: 6 Minute Walk Test PSN:6-Minute Walk Test Start: 05/15/22 11:31 Freq: Status: Active Protocol: RESP.6MINW Document 05/15/22 11:15 [facility] (Rec: 05/15/22 11:35 [facility] [id number]) 6 Minute Walk Test Date Performed 05/15/22 Time Performed 11:15 Height 5 ft 9 in Weight: 252 lb Weight in Pounds 252.[address]: ANDREINA Owen Assistive device used: None Pre-test Oxygen Delivery Method Room Air Pulse Ox (%) 97 Pulse Rate (60-100 beats/min) 65 Dyspnea Evin Scale (0-10) 0.5 Exertion Evin Scale (6-20) 6 1st minute Oxygen Delivery Method Room Air Pulse Ox (%) 97 Pulse Rate (60-100 beats/min) 95 2nd minute Oxygen Delivery Method Room Air Pulse Ox (%) 96 Pulse Rate (60-100 beats/min) 103 H 3rd minute Oxygen Delivery Method Room Air Pulse Ox (%) 96 Pulse Rate (60-100 beats/min) 103 H 4th minute Oxygen Delivery Method Room Air Pulse Ox (%) 97 Pulse Rate (60-100 beats/min) 105 H 5th minute Oxygen Delivery Method Room Air Pulse Ox (%) 96 Pulse Rate (60-100 beats/min) 102 H 6th minute Oxygen Delivery Method Room Air Pulse Ox (%) 96 Pulse Rate (60-100 beats/min) 103 H Dyspnea Evin Scale (0-10) 0.5 Exertion Evin Scale (6-20) 11 Post-test Oxygen Delivery Method Room Air Pulse Ox (%) 98 Pulse Rate (60-100 beats/min) 70 Full Laps Walked 20 Partial Lap, Number of Tiles Walked 31 Total Distance Walked (ft) 1211 Interpretation Interpretation: The patient ambulated 1211 feet over the course of 6 minutes beginning on room air without assistive devices or breaks. Pretesting oxygen saturation was noted to be 97% on room air. With ambulation, the ritu oxygen saturation was 96%. There was no significant exertional oxygen desaturation. Recommendations Recommendations: There is no indication for the use of supplemental oxygen at this time.
== END | disposition home or self-care (01) ==
PROVIDERS: PCP Family Medicine; Referring Provider Nurse Practitioner Acute Care; Visit Provider Nurse Practitioner Acute Care
DX: J44.9 Chronic obstructive pulmonary disease, unspecified (principal)
CPT/HCPCS: 94618